=== PATIENT | male | born 1935 | race Caucasian/White ===

== ENCOUNTER 2018-03-29 20:04 | Observation (INO) | payer MEDICARE, OTHER ==
[~2018-03-29] VITALS: Ht 177.8 cm; Wt 130.6 kg
[~2018-03-29 20:04] MED LIST: ACET325 PO; ALBU90OI; ALLO100 PO; ALLO300 PO; ASCO1ER PO; ASPI325EC PO; ASPI81CH PO; ATEN25 PO; Aspirin EC81 MG PO; B 12; BICA50 PO; CEFD300 PO; CIPR500 PO; CITA20 PO; CYAN1000 PO; DOCU100 PO; DOXY100 PO; FISH1000 PO; FOLI1 PO; FOLI400 PO; FURO40 PO; GABA300 PO; HYDACE5 PO; HYDACE5325 PO; HYDMOR2 PO; Hair, Skin & N1 EACH PO; INTRINSI B12-F1 EACH PO; ISOMON20 PO; Isosorbide Dini30 MG PO; LACT10SY PO; LAVAP17G PO; LEVFLO500 PO; LEVSOD100 PO; LEVSOD75 PO; LISI20 PO; LISI5 PO; LORA.5 PO; LOSA50 PO; MELA3 PO; METF500 PO; METO50 PO; MIRT15 PO; OMEP20ER PO; OXYACE5T PO; OXYC5 PO; PANT40 PO; PIOG15 PO; POTA10T PO; POTASSIUM PO; POTCIT10 PO; PRAV20 PO; PROMETHAZINE/CODEINE; Pravachol40 MG PO; Prilosec Otc20 MG PO; RXHYDMOR2 PO; SIMV40 PO; Synthroid112 MCG PO; TAMS.4ER PO; TEMA30 PO; TERA2 PO; TERA5 PO; TERAZOSIN PO; TRAZ50 PO; UROCIT-K15 MEQ PO; Verotin-Gr Cap1 EACH PO; Vitamin C100 M1 PO
[2018-03-29] MEDS ORDERED: POTCHL10ER PO (20:32)
[2018-03-29] MEDS ORDERED: PRED5 PO (20:32)
[2018-03-29] MEDS ORDERED: ZYTIGA250 MG PO (20:32)
[2018-03-29] MEDS ORDERED: OXYC5 PO (20:33)
[2018-03-29 20:42] LABS: BASOPHILS ABSOLUTE AUTO 0.03 K/mm3 (0.00-0.23); BASOPHILS PERCENT AUTO 1 % (0-2); EOSINOPHILS ABSOLUTE AUTO 0.17 K/mm3 (0.00-0.68); EOSINOPHILS PERCENT AUTO 4 % (0-6); Hematocrit 30.6 % (37.0-53.0); Hemoglobin 10.3 g/dL (13.5-17.5); IMMATURE GRAN ABSOLUTE AUTO 0.05 K/mm3 (0.00-0.10); IMMATURE GRAN PERCENT AUTO 1 % (0-1); LYMPHOCYTES ABSOLUTE AUTO 1.52 K/mm3 (0.84-5.20); LYMPHOCYTES PERCENT AUTO 31 % (21-46); MONOCYTES ABSOLUTE AUTO 0.48 K/mm3 (0.16-1.47); MONOCYTES PERCENT AUTO 10 % (4-13); Mean Corpuscular HGB 32.5 pg (26.0-34.0); Mean Corpuscular HGB Conc 33.7 g/dL (31.5-36.5); Mean Corpuscular Volume 97 fL (80-100); Mean Platelet Volume 9.4 fL (9.1-12.4); NEUTROPHILS PERCENT AUTO 54 % (41-73); Platelet Count 184 K/mm3 (150-400); RDW Coefficient Variation 13.7 % (11.7-14.2); Red Blood Cell Count 3.17 M/mm3 (4.30-5.90); White Blood Cell Count 4.85 K/mm3 (4.00-11.30)
[2018-03-29 21:03] LABS: Albumin, Blood 3.6 g/dL (3.4-5.0); Albumin/Globulin Ratio 1.2 (0.8-1.8); Bilirubin, Total 0.2 mg/dL (0.1-1.0); Bun/Creatinine Ratio 13.1 (12.0-20.0); Calcium, Blood 8.2 mg/dL (8.5-10.1); Creatinine, Blood 1.45 mg/dL (0.60-1.20); Globulin, Blood 3.1 g/dL (2.2-4.0); Potassium, Blood 3.8 mmol/L (3.5-5.5); Total Protein, Blood 6.7 g/dL (6.4-8.2); Troponin I 0.08 ng/mL (0.000-0.040)
[2018-03-30 01:00] LABS: Source, Urine Clean Catch
[2018-03-30 01:01] LABS: Bilirubin, Urine Neg (Neg); Blood, Urine Neg (Neg); Glucose Qualitative, Urine Neg (Neg); Ketones, Urine Neg (Neg); Leukocyte Esterase, Urine Neg (Neg); Nitrite, Urine Neg (Neg); Protein, Urine Neg (Neg); Specific Gravity, Urine 1.005 (1.003-1.022); Urobilinogen, Urine NORM (Normal)
[2018-03-30 01:03] LABS: Appearance, Urine Clear (Clear); Color, Urine Yellow (P-Yellow)
[2018-03-30 08:43] LABS: Hemoglobin 10.4 g/dL (13.5-17.5); Mean Corpuscular HGB 32.6 pg (26.0-34.0); Mean Corpuscular HGB Conc 33.5 g/dL (31.5-36.5); Mean Corpuscular Volume 97 fL (80-100); Mean Platelet Volume 9.6 fL (9.1-12.4); Platelet Count 173 K/mm3 (150-400); RDW Coefficient Variation 13.7 % (11.7-14.2); RDW Standard Deviation 48.9 fL (35.1-46.3); Red Blood Cell Count 3.19 M/mm3 (4.30-5.90); White Blood Cell Count 4.85 K/mm3 (4.00-11.30)
[2018-03-30 09:01] LABS: Albumin, Blood 3.5 g/dL (3.4-5.0); Anion Gap 11 mmol/L (6-16); Blood Urea Nitrogen 18 mg/dL (8-24); Bun/Creatinine Ratio 12.9 (12.0-20.0); CO2, Blood 28 mmol/L (21-32); Calcium, Blood 8.2 mg/dL (8.5-10.1); Chloride, Blood 102 mmol/L (98-108); Creatinine, Blood 1.39 mg/dL (0.60-1.20); Glomerular Filtration Rate 52 (60-); Glucose, Blood 124 mg/dL (70-99); Magnesium, Blood 1.2 mg/dL (1.6-2.4); Phosphorus, Blood 3.7 mg/dL (2.5-4.9); Potassium, Blood 3.8 mmol/L (3.5-5.5); Sodium, Blood 141 mmol/L (136-145)
[2018-03-30 09:02] LABS: Troponin I 0.065 ng/mL (0.000-0.040)
[2018-03-30] MEDS ORDERED: AMLO10 PO (09:52)
[2018-03-30] MEDS ORDERED: CYAN500 PO (09:55)
[2018-03-30] MEDS ORDERED: DOCU100 PO (09:58)
[2018-03-30] MEDS ORDERED: CHOL10002 PO (10:00)
[2018-03-31 06:00] LABS: BASOPHILS ABSOLUTE AUTO 0.02 K/mm3 (0.00-0.23); BASOPHILS PERCENT AUTO 0 % (0-2); EOSINOPHILS ABSOLUTE AUTO 0.16 K/mm3 (0.00-0.68); EOSINOPHILS PERCENT AUTO 3 % (0-6); Hematocrit 30.1 % (37.0-53.0); Hemoglobin 10.3 g/dL (13.5-17.5); IMMATURE GRAN ABSOLUTE AUTO 0.04 K/mm3 (0.00-0.10); IMMATURE GRAN PERCENT AUTO 1 % (0-1); LYMPHOCYTES ABSOLUTE AUTO 1.22 K/mm3 (0.84-5.20); LYMPHOCYTES PERCENT AUTO 24 % (21-46); MONOCYTES ABSOLUTE AUTO 0.46 K/mm3 (0.16-1.47); MONOCYTES PERCENT AUTO 9 % (4-13); Mean Corpuscular HGB 33.2 pg (26.0-34.0); Mean Corpuscular HGB Conc 34.2 g/dL (31.5-36.5); Mean Corpuscular Volume 97 fL (80-100); Mean Platelet Volume 9.1 fL (9.1-12.4); NEUTROPHILS ABSOLUTE AUTO 3.14 K/mm3 (1.96-9.15); NEUTROPHILS PERCENT AUTO 62 % (41-73); Platelet Count 153 K/mm3 (150-400); RDW Coefficient Variation 13.5 % (11.7-14.2); RDW Standard Deviation 48.1 fL (35.1-46.3); White Blood Cell Count 5.04 K/mm3 (4.00-11.30)
[2018-03-31 06:15] LABS: Bun/Creatinine Ratio 15.4 (12.0-20.0); Calcium, Blood 7.8 mg/dL (8.5-10.1); Creatinine, Blood 1.49 mg/dL (0.60-1.20); Potassium, Blood 3.8 mmol/L (3.5-5.5)
[2018-03-31] MEDS ORDERED: BUME2 PO (11:20)
[2018-03-31] MEDS ORDERED: Metformin HCl500 MG PO (11:23)
[2018-03-31] MEDS ORDERED: Hytrin2 MG PO (11:28)
[2018-03-31] MEDS ORDERED: MIRALAX17 GM PO (11:32)
== END 2018-03-31 12:05 | disposition home or self-care (01) ==
LOC: ER 20:04 → MEDS 20:05 → ER 23:40 → MEDS 23:40 → ENPENDDIS 03-31 09:00 → MEDS 03-31 12:05
PROVIDERS: Emergency Medicine; Internal Medicine; Nurse Practitioner Acute Care
DX: R60.0 Localized edema (principal); K59.00 Constipation, unspecified; R14.0 Abdominal distension (gaseous); R79.89 Other specified abnormal findings of blood chemistry; E11.22 Type 2 diabetes mellitus with diabetic chronic kidney disease; I12.9 Hypertensive chronic kidney disease with stage 1 through stage 4 chronic kidney disease, or unspecified chronic kidney disease; N18.3 Chronic kidney disease, stage 3 (moderate); G89.29 Other chronic pain; E78.5 Hyperlipidemia, unspecified; C79.51 Secondary malignant neoplasm of bone; I25.10 Atherosclerotic heart disease of native coronary artery without angina pectoris; G47.33 Obstructive sleep apnea (adult) (pediatric); M79.89 Other specified soft tissue disorders; Z79.82 Long term (current) use of aspirin; Z79.899 Other long term (current) drug therapy; Z95.1 Presence of aortocoronary bypass graft; Z90.79 Acquired absence of other genital organ(s); Z92.3 Personal history of irradiation; Z85.46 Personal history of malignant neoplasm of prostate; Z99.89 Dependence on other enabling machines and devices; E78.00 Pure hypercholesterolemia, unspecified; Z88.0 Allergy status to penicillin; Z88.8 Allergy status to other drugs, medicaments and biological substances
CPT/HCPCS: 36415; 71046; 76700; 80048; 80053; 80069; 81003; 82947; 83735; 83880; 84484; 85025; 85027; 93005; 93010; 93306; 94762; 96372; 96374; 96375; 96376; 99285; G0378; J1644; J2405

== ENCOUNTER 2018-12-04 21:27 | Emergency (ER) | payer MEDICARE, OTHER ==
[~2018-12-04] VITALS: Ht 177.8 cm; Wt 128.4 kg
[~2018-12-04 21:27] MED LIST changes: +AMLO10 PO; +BUME2 PO; +CHOL10002 PO; +CYAN500 PO; -GABA300 PO; +GABA800 PO; +Hytrin2 MG PO; +MIRALAX17 GM PO; +Metformin HCl500 MG PO; +OXYC10TA19 PO; +POTCHL10ER PO; +PRED5 PO; +ZYTIGA250 MG PO
[2018-12-04] MEDS ORDERED: PRED5 PO (22:07)
[2018-12-04] MEDS ORDERED: DULO60 PO (22:07)
[2018-12-04] MEDS ORDERED: ZYTIGA250 MG PO (22:07)
[2018-12-04] MEDS ORDERED: ONDA4ODT MM (22:08)
[2018-12-04] MEDS ORDERED: PIOG15 PO (22:08)
[2018-12-04] MEDS ORDERED: LIDO700A20 TOP (22:58)
== END 2018-12-05 00:15 | disposition home or self-care (01) ==
LOC: ER 21:27
DX: M54.5 Low back pain (principal); G89.29 Other chronic pain; M48.56XD Collapsed vertebra, not elsewhere classified, lumbar region, subsequent encounter for fracture with routine healing; I25.10 Atherosclerotic heart disease of native coronary artery without angina pectoris; E11.22 Type 2 diabetes mellitus with diabetic chronic kidney disease; I12.9 Hypertensive chronic kidney disease with stage 1 through stage 4 chronic kidney disease, or unspecified chronic kidney disease; N18.9 Chronic kidney disease, unspecified; E78.00 Pure hypercholesterolemia, unspecified; Z85.46 Personal history of malignant neoplasm of prostate; Z88.0 Allergy status to penicillin; Z88.8 Allergy status to other drugs, medicaments and biological substances; Z79.82 Long term (current) use of aspirin; Z79.899 Other long term (current) drug therapy; Z87.442 Personal history of urinary calculi; Z96.653 Presence of artificial knee joint, bilateral; Z95.1 Presence of aortocoronary bypass graft; Z90.79 Acquired absence of other genital organ(s)
CPT/HCPCS: 72100; 96372; 96374; 99283-25; J1170; J1885

== ENCOUNTER 2018-12-09 13:06 | Emergency (ER) | payer MEDICARE, OTHER ==
[~2018-12-09] VITALS: Ht 177.8 cm; Wt 127.5 kg
[~2018-12-09 13:06] MED LIST changes: +DULO60 PO; +LIDO700A20 TOP; +ONDA4ODT MM
== END 2018-12-09 22:30 | disposition home or self-care (01) ==
LOC: ER 13:06
DX: K59.00 Constipation, unspecified (principal); G89.29 Other chronic pain; M54.5 Low back pain; I25.10 Atherosclerotic heart disease of native coronary artery without angina pectoris; I12.9 Hypertensive chronic kidney disease with stage 1 through stage 4 chronic kidney disease, or unspecified chronic kidney disease; E11.22 Type 2 diabetes mellitus with diabetic chronic kidney disease; N18.9 Chronic kidney disease, unspecified; E78.00 Pure hypercholesterolemia, unspecified; G47.33 Obstructive sleep apnea (adult) (pediatric); Z79.899 Other long term (current) drug therapy; Z88.0 Allergy status to penicillin; Z88.8 Allergy status to other drugs, medicaments and biological substances; Z79.82 Long term (current) use of aspirin
CPT/HCPCS: 74018; 96372; 99283-25; J1170

== ENCOUNTER 2018-12-14 11:23 | Emergency (ER) | payer MEDICARE, OTHER ==
[~2018-12-14] VITALS: Ht 177.8 cm; Wt 127.0 kg
[2018-12-14] MEDS ORDERED: PRED5 PO (22:11)
[2018-12-14] MEDS ORDERED: CHOL10002 PO (22:11)
[2018-12-14] MEDS ORDERED: FENTANYL1 EAC1 TD (22:14)
[2018-12-14] MEDS ORDERED: HYDMOR2 PO (22:57)
[2018-12-14] MEDS ORDERED: OXYCODONE HCL E20 MG PO (22:57)
== END 2018-12-14 13:45 | disposition left against medical advice (07) ==
LOC: ER 11:23
DX: Z53.21 Procedure and treatment not carried out due to patient leaving prior to being seen by health care provider (principal); Z79.899 Other long term (current) drug therapy; Z79.82 Long term (current) use of aspirin
CPT/HCPCS: 99282

== ENCOUNTER 2018-12-14 17:04 | Emergency (ER) | payer MEDICARE, OTHER ==
[~2018-12-14] VITALS: Ht 177.8 cm; Wt 127.0 kg
[2018-12-14] MEDS ORDERED: PRED5 PO (22:11)
[2018-12-14] MEDS ORDERED: CHOL10002 PO (22:11)
[2018-12-14] MEDS ORDERED: FENTANYL1 EAC1 TD (22:14)
[2018-12-14] MEDS ORDERED: HYDMOR2 PO (22:57)
[2018-12-14] MEDS ORDERED: OXYCODONE HCL E20 MG PO (22:57)
== END 2018-12-14 23:24 | disposition home or self-care (01) ==
LOC: ER 17:04
DX: G89.29 Other chronic pain (principal); M54.5 Low back pain; M48.56XA Collapsed vertebra, not elsewhere classified, lumbar region, initial encounter for fracture; E11.9 Type 2 diabetes mellitus without complications; Z79.899 Other long term (current) drug therapy; Z79.82 Long term (current) use of aspirin; Z88.0 Allergy status to penicillin; Z88.8 Allergy status to other drugs, medicaments and biological substances
CPT/HCPCS: 36415; 72100; 96372; 96374; 96375; 99283-25; J1170; J2405

== ENCOUNTER 2018-12-25 14:32 | Emergency (ER) | payer MEDICARE, OTHER ==
[~2018-12-25] VITALS: Ht 177.8 cm; Wt 127.5 kg
[~2018-12-25 14:32] MED LIST changes: +FENTANYL1 EAC1 TD; +OXYCODONE HCL E20 MG PO
[2018-12-25 15:21] LABS: BASOPHILS ABSOLUTE AUTO 0.03 K/mm3 (0.00-0.23); BASOPHILS PERCENT AUTO 0 % (0-2); EOSINOPHILS ABSOLUTE AUTO 0.04 K/mm3 (0.00-0.68); EOSINOPHILS PERCENT AUTO 0 % (0-6); Hematocrit 34.8 % (37.0-53.0); Hemoglobin 11.5 g/dL (13.5-17.5); IMMATURE GRAN ABSOLUTE AUTO 0.17 K/mm3 (0.00-0.10); IMMATURE GRAN PERCENT AUTO 2 % (0-1); LYMPHOCYTES ABSOLUTE AUTO 0.76 K/mm3 (0.84-5.20); LYMPHOCYTES PERCENT AUTO 9 % (21-46); MONOCYTES ABSOLUTE AUTO 0.64 K/mm3 (0.16-1.47); MONOCYTES PERCENT AUTO 7 % (4-13); Mean Corpuscular HGB 33.4 pg (26.0-34.0); Mean Corpuscular Volume 101 fL (80-100); Mean Platelet Volume 8.9 fL (9.1-12.4); NEUTROPHILS PERCENT AUTO 82 % (41-73); Platelet Count 253 K/mm3 (150-400); RDW Coefficient Variation 13.1 % (11.7-14.2); RDW Standard Deviation 48.3 fL (35.1-46.3); Red Blood Cell Count 3.44 M/mm3 (4.30-5.90); White Blood Cell Count 8.94 K/mm3 (4.00-11.30)
[2018-12-25 16:08] LABS: Albumin, Blood 3.3 g/dL (3.4-5.0); Albumin/Globulin Ratio 0.8 (0.8-1.8); Bilirubin, Total 0.5 mg/dL (0.1-1.0); Calcium, Blood 9.1 mg/dL (8.5-10.1); Creatinine, Blood 1.5 mg/dL (0.60-1.20); Total Protein, Blood 7.3 g/dL (6.4-8.2)
[2018-12-26] MEDS ORDERED: HYDMOR2 PO (11:03)
[2018-12-26] MEDS ORDERED: OXYC10ER PO (11:04)
[2018-12-26] MEDS ORDERED: FENT50TP TOP (14:07)
== END 2018-12-25 18:37 | disposition home or self-care (01) ==
LOC: ER 14:32
PROVIDERS: Emergency Medicine
DX: M79.669 Pain in unspecified lower leg (principal); I25.10 Atherosclerotic heart disease of native coronary artery without angina pectoris; I50.9 Heart failure, unspecified; G47.33 Obstructive sleep apnea (adult) (pediatric); E11.22 Type 2 diabetes mellitus with diabetic chronic kidney disease; N18.9 Chronic kidney disease, unspecified; Z79.899 Other long term (current) drug therapy; Z79.82 Long term (current) use of aspirin
CPT/HCPCS: 36415; 80053; 83880; 85025; 93005; 93010; 93925; 99284-25

== ENCOUNTER 2018-12-26 10:44 | Emergency (ER) | payer MEDICARE, OTHER ==
[~2018-12-26] VITALS: Ht 177.8 cm; Wt 127.5 kg
[2018-12-26] MEDS ORDERED: HYDMOR2 PO (11:03)
[2018-12-26] MEDS ORDERED: OXYC10ER PO (11:04)
[2018-12-26] MEDS ORDERED: FENT50TP TOP (14:07)
--- NOTE | 2018-12-26 15:23 | NUR ---
Initial Pal Care visit: Met pt, his and grandson in ER#[address] after update obtained from Dr Montano. Pt was in the ER yesterday for tammy LE edema. He returns with severe back pain that has been an ongoing, severe issue unrelieved with current analgesics. Pt has been on Duragesic patch 25mcg, Oxycodone ER 20mg PO q12h and also has dilaudid 2mg PO q4hrs prn breakthru pain which has all been used. Due to pt's severe pain, he is unable to assist family with mobility and unable to navigate stairs at home. Grandson reports they were told by PCP office to come to ER for "placement in a facility" until his back procedure could be done, which will hopefully provide some relief. Pt sees Dr Man for his prostate ca and treatment that has included a large number of radiation tx. Pt sees Dr Bustos as his PCP but pt and family state each Dr refers them to the other Dr for pain management. I recommended they request a referral to a pain specialist. 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 We spent 40 minutes discussing options for home management and care. Their bathroom remodel is starting tomorrow. I recommended staying with family or a handicapped accesible motel while they were without toilet and BR. I recommended some equipment in the home, BSC, WC, shower chair. Grandson is clearly overwhelmed with Norm's care needs. WE discussed criteria required for SNF and pt does not meet those criteria without an acute care stay and dx that would be treated at hospital and SNF. Grandson asked about other options and I offered options that would be private pay ie, [facility], [facility], hired caregiver. Pt has medicare with a moda supplement but he does not have medicaid that may cover some care costs that health insurance does not. and grandson had questions re: Palliative Care, hospice and HH services and we discussed all of those including how they work, who would order, quilifying criteria. I do not know what pt's prognosis is in regard to his cancer or any other chronic disease process and I did not recommend any specific option but answered questions asked. I reported to Dr and RN on my visit. Recommended increasing the pt's home duragesic patch dose to 50 mcg applied q72 hrs by removing current patch and applying new 50mcg patch here in ER. Discussed with pt and family s/s to assess for, increased somnolence, decreased respiratory rate and to hold the breakthru pain meds and possibly the ER meds unless pt was alert, oriented, reporting pain >6/10 to avoid oversedation or compromise of respiratory drive. Grandson states they have an oximeter and pt uses CPAP with napping and night time. He verbalizes understanding of instructions given. Pt states HH had been ordered for him and I recommended he keep those appointments as a HH PT/OT and RN could give better recommendations after assessing their home for modifications to improve safety and mobility there. Time spent listening to their frustrations and fears. They expressed appreciation for the information and time spent with them. I asked them to contact both PCP and oncologist tomorrow and report on ER visit and needs. Pt is scheduled a week from tomorrow for the out patient back procedure and are hopeful he will get some relief after that.
== END 2018-12-26 15:16 | disposition home or self-care (01) ==
LOC: ER 10:44
DX: G89.29 Other chronic pain (principal); M54.5 Low back pain; Z88.0 Allergy status to penicillin; Z88.8 Allergy status to other drugs, medicaments and biological substances; Z79.899 Other long term (current) drug therapy; Z79.82 Long term (current) use of aspirin; Z79.52 Long term (current) use of systemic steroids; I50.9 Heart failure, unspecified; N18.9 Chronic kidney disease, unspecified
CPT/HCPCS: 36415; 96374; 96376; 99283-25; J1170

== ENCOUNTER 2018-12-31 10:51 | Emergency (ER) | payer MEDICARE, OTHER ==
[~2018-12-31] VITALS: Ht 177.8 cm; Wt 127.0 kg
[~2018-12-31 10:51] MED LIST changes: +FENT50TP TOP; +OXYC10ER PO
[2018-12-31 12:00] LABS: BASOPHILS ABSOLUTE AUTO 0.02 K/mm3 (0.00-0.23); BASOPHILS PERCENT AUTO 0 % (0-2); EOSINOPHILS ABSOLUTE AUTO 0.05 K/mm3 (0.00-0.68); EOSINOPHILS PERCENT AUTO 1 % (0-6); Hematocrit 33.3 % (37.0-53.0); Hemoglobin 10.5 g/dL (13.5-17.5); IMMATURE GRAN ABSOLUTE AUTO 0.16 K/mm3 (0.00-0.10); IMMATURE GRAN PERCENT AUTO 3 % (0-1); LYMPHOCYTES ABSOLUTE AUTO 0.64 K/mm3 (0.84-5.20); LYMPHOCYTES PERCENT AUTO 10 % (21-46); MONOCYTES ABSOLUTE AUTO 0.45 K/mm3 (0.16-1.47); MONOCYTES PERCENT AUTO 7 % (4-13); Mean Corpuscular HGB 32.8 pg (26.0-34.0); Mean Corpuscular HGB Conc 31.5 g/dL (31.5-36.5); Mean Platelet Volume 8.7 fL (9.1-12.4); NEUTROPHILS ABSOLUTE AUTO 4.89 K/mm3 (1.96-9.15); NEUTROPHILS PERCENT AUTO 79 % (41-73); Platelet Count 230 K/mm3 (150-400); RDW Standard Deviation 49.5 fL (35.1-46.3); White Blood Cell Count 6.21 K/mm3 (4.00-11.30)
[2018-12-31 12:08] LABS: Mean Corpuscular Volume 104 fL (80-100)
[2018-12-31 12:19] LABS: Bun/Creatinine Ratio 19.4 (12.0-20.0); Calcium, Blood 8.8 mg/dL (8.5-10.1); Creatinine, Blood 1.8 mg/dL (0.60-1.20)
[2018-12-31] MEDS ORDERED: GABA400 PO (12:56)
[2018-12-31] MEDS ORDERED: Oxycontin20 MG PO (12:56)
[2018-12-31] MEDS ORDERED: Narcan 0.40.4 MG/ML IM (12:56)
--- NOTE | 2018-12-31 17:57 | NUR ---
Met withpatient and son. pt denies headaches, he has mild intermeitant ringing in his ears for years. 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 neck tighness and moderate venitlation and mild dyspnea. pt main complaint is low back pain sapsm pain to legs and constipation. Review of patient medication list. pt had neuronin prescribed at 800mg TID. Son states they are only taking 800 at HS. States insurance alled and refused dosing. Reviewed patient medication list with phamacist Tristen Fajardo and we reviewed his creatine clearance from past admission and labs for trending. REview of renal calculations and review with ER physician. and minimal dosing ordered TID for better nerve pain coverage. Patient is having his bathrrom redone for ease of access so they have been stayin in hotel. Theya re able to retun today. pt has intake with [facility] for home tash. Review of pain meds with pt, son and physician. advised son to contact Dr. Morfin for assitance of medication dosing will updat patient physicians. advised to request PT for stiffness and increas mobility tolerance. pt kps score is 40%. pt may be hospice appropriate. will update physician to help with appropriate tiem for transition to hospice and pain managment.
== END 2018-12-31 13:18 | disposition home or self-care (01) ==
LOC: ER 10:51
PROVIDERS: Emergency Medicine
DX: M54.5 Low back pain (principal); I50.9 Heart failure, unspecified; E11.9 Type 2 diabetes mellitus without complications; N18.9 Chronic kidney disease, unspecified; Z88.0 Allergy status to penicillin; Z79.899 Other long term (current) drug therapy
CPT/HCPCS: 72100; 80048; 85025; J1170

== ENCOUNTER 2019-01-04 12:20 | Inpatient (IN) | payer MEDICARE, OTHER ==
[~2019-01-04] VITALS: Ht 177.8 cm; Wt 127.0 kg
[~2019-01-04 12:20] MED LIST changes: +GABA400 PO; +Narcan 0.40.4 MG/ML IM; +Oxycontin20 MG PO
[2019-01-04 12:59] LABS: Hemoglobin 10.8 g/dL (13.5-17.5); Mean Corpuscular HGB 32.7 pg (26.0-34.0); Mean Corpuscular HGB Conc 31.8 g/dL (31.5-36.5); Mean Corpuscular Volume 103 fL (80-100); RDW Coefficient Variation 13.2 % (11.7-14.2); RDW Standard Deviation 49.2 fL (35.1-46.3); White Blood Cell Count 8.69 K/mm3 (4.00-11.30)
[2019-01-04 13:05] LABS: Mean Platelet Volume 9.4 fL (9.1-12.4); Platelet Count 211 K/mm3 (150-400)
[2019-01-04 13:23] LABS: BAND PERCENT MAN 7 % (0-8); BASOPHILS PERCENT MAN 0 % (0-2); EOSINOPHILS ABSOLUTE MAN 0.08 K/mm3 (0.00-0.68); EOSINOPHILS PERCENT MAN 1 % (0-6); LYMPHOCYTES ABSOLUTE MAN 0.34 K/mm3 (0.84-5.20); LYMPHOCYTES PERCENT MAN 4 % (21-46); MONOCYTES PERCENT MAN 7 % (4-13); NEUTROPHILS ABSOLUTE MAN 7.64 K/mm3 (1.96-9.15); SEG NEUTROPHILS PERCENT MAN 81 % (41-73); TOTAL CELLS COUNTED 100
[2019-01-04 13:26] LABS: Albumin, Blood 2.8 g/dL (3.4-5.0); Albumin/Globulin Ratio 0.8 (0.8-1.8); Bilirubin, Total 0.4 mg/dL (0.1-1.0); Bun/Creatinine Ratio 14.9 (12.0-20.0); Calcium, Blood 8.2 mg/dL (8.5-10.1); Creatinine, Blood 3.62 mg/dL (0.60-1.20); Globulin, Blood 3.5 g/dL (2.2-4.0); Potassium, Blood 4.1 mmol/L (3.5-5.5); Total Protein, Blood 6.3 g/dL (6.4-8.2)
[2019-01-04 13:33] LABS: Troponin I 0.509 ng/mL (0.000-0.040)
--- NOTE | 2019-01-04 19:28 | NUR ---
ARRIVED ON MEDICAL FLOOR AT 1850. TRANSFERRED PT TO BED WITH AO3 SLIDE TRANSFER. BRIEF PLACED FOR HX OF INCONTINENCE. DAUGHTER WEN AT BEDSIDE. PT ENDORSES PAIN WITH MOVEMENT, POSITIONING UTILIZED. SERIAL TROPONIN DRAWN. HANDED OVER TO NIGHT NURSE
[2019-01-04] MEDS ORDERED: LOSA25 PO (19:47)
[2019-01-04 21:14] LABS: PCO2 Arterial 40.9 mmHg (35-45); PO2 Arterial 53.9 mmHg (80-100); pH Blood Arterial 7.36 (7.35-7.45)
[2019-01-04 21:34] LABS: Thyroid Stimulating Hormone 3.97 uIU/mL (0.360-4.800)
[2019-01-04 23:36] LABS: Source, Urine Catheter
[2019-01-04 23:38] LABS: Blood, Urine 3+ (Neg); Glucose Qualitative, Urine Neg (Neg); Ketones, Urine 1+ (Neg); Leukocyte Esterase, Urine 1+ (Neg); Nitrite, Urine Neg (Neg); Protein, Urine 2+ (Neg); Urobilinogen, Urine 1+ (Normal)
[2019-01-04 23:48] LABS: Appearance, Urine Clear (Clear); Bilirubin, Urine 2+ (Neg); Color, Urine Amber (P-Yellow)
[2019-01-04 23:49] LABS: Amorphous Light (0-Heavy); Bacteria Mod /hpf; Red Blood Cells, Urine 0-2 /hpf (0-2); Squamous Epithelial Cells Not Seen /hpf (Few); White Blood Cells, Urine 0-2 /hpf (0-5)
[2019-01-04 23:50] LABS: Mucus Light (0-Heavy)
[2019-01-04 23:52] LABS: U Amphetamine Screen Not Detected; U Barbituate Screen Not Detected; U Benzodiazapine Screen DETECTED; U Buprenorphine Screen Not Detected; U Cannabinoids Screen Not Detected; U Cocaine Screen Not Detected; U Methadone Screen Not Detected; U Methamphetamine Screen Not Detected; U Opiates Screen DETECTED; U Oxycodone Screen DETECTED; U Phencyclidine Screen Not Detected; U Propoxyphene Screen Not Detected
[2019-01-05 01:03] LABS: BASOPHILS ABSOLUTE AUTO 0.02 K/mm3 (0.00-0.23); BASOPHILS PERCENT AUTO 0 % (0-2); EOSINOPHILS ABSOLUTE AUTO 0.06 K/mm3 (0.00-0.68); EOSINOPHILS PERCENT AUTO 1 % (0-6); Hematocrit 33.6 % (37.0-53.0); Hemoglobin 10.7 g/dL (13.5-17.5); IMMATURE GRAN ABSOLUTE AUTO 0.06 K/mm3 (0.00-0.10); IMMATURE GRAN PERCENT AUTO 1 % (0-1); LYMPHOCYTES ABSOLUTE AUTO 0.25 K/mm3 (0.84-5.20); LYMPHOCYTES PERCENT AUTO 3 % (21-46); MONOCYTES ABSOLUTE AUTO 0.45 K/mm3 (0.16-1.47); MONOCYTES PERCENT AUTO 5 % (4-13); Mean Corpuscular HGB 32.3 pg (26.0-34.0); Mean Corpuscular HGB Conc 31.8 g/dL (31.5-36.5); Mean Corpuscular Volume 102 fL (80-100); Mean Platelet Volume 9.1 fL (9.1-12.4); NEUTROPHILS ABSOLUTE AUTO 7.67 K/mm3 (1.96-9.15); NEUTROPHILS PERCENT AUTO 90 % (41-73); Platelet Count 191 K/mm3 (150-400); RDW Coefficient Variation 13.2 % (11.7-14.2); RDW Standard Deviation 48.9 fL (35.1-46.3); Red Blood Cell Count 3.31 M/mm3 (4.30-5.90); White Blood Cell Count 8.51 K/mm3 (4.00-11.30)
[2019-01-05 01:55] LABS: Bun/Creatinine Ratio 17.3 (12.0-20.0); Calcium, Blood 8.2 mg/dL (8.5-10.1); Creatinine, Blood 3.65 mg/dL (0.60-1.20)
--- NOTE | 2019-01-05 02:45 | NUR ---
2024 pt troponin elevated to 0.965, hospitalist supervisor [employer] notified. will be awaiting orders for this pt. Pt continues to be lethargic and has jerking movements. Responds to voice. 5 troponin elevated to 1.53, hospitalist supervisor [employer] notified, no new orders received as of yet. pT CONTINUES TO BE JERKY WITH MOVEMENT AND LETHARGIC RESPONDING ONLY TO VERBAL STIMULI. TELE SHOWS SINUS TACH WITH PAC AND BBB AT 114. WILL CONTINUE TO MONITOR.
--- NOTE | 2019-01-05 05:50 | NUR ---
SHIFT SUMMARY NO NEW CHANGES FROM PREVIOUS NOTE. PT REMAINS LETHARGIC AND ALSO CONTINUES TOO HAVE JERKING MOVEMENTS. PT TURNED TO LEFT SIDE AND TOLERATING WELL. PT STRAIT CATHED FOR UA, CATHED ABOUT 200 ML'S RAMIRO COLORED URINE. WILL CONTINUE TO MONITOR.
--- NOTE | 2019-01-05 10:09 | NUR ---
Echocardiogram completed.
[2019-01-05 10:35] LABS: PCO2 Arterial 47.6 mmHg (35-45); PO2 Arterial 169 mmHg (80-100); pH Blood Arterial 6.92 (7.35-7.45)
--- NOTE | 2019-01-05 11:31 | NUR ---
1047 PT TO ICU-16 VIA BED, BICARB GTT STARTED AND INC TO 500ML TIMES ONE LITER PER DR COREAS. LR CURRENTLY TKO. PT IS NOT FOLLOWING ANY COMMANDS AND IS TWITCHING RANDOMLY TIMES 4 EXT. W/O PURPOSE AND NOT FOLLOWING ANY COMMMANDS. ESCALANTE PLACE AND VERY CONSENTRATED URINE RETURNED AND SPECIMEN SENT. PT WAS PLACED ON BIPAP 16/12 AT 100% FIO2 AND RR 40-42. LUNG SOUNDS REVEAL DECREASED B.S. TO WITH POST BASILAR CRACKLES. PT IS MOTTLED EVERYWHERE. BP IS NOTED VIA NIPB BUT WITH TWITCHING PT IS DIFFICULT TO OBTAIN ACCURATE READINGS. 1150 MANUAL BP AT 118/80. HR 84, SATS REMAIN UNRELIABLE. MOTTLING IMPROVED, HR DOWN FROM 90 TO 80 RANGE. RR 40 SAME SETTINGS.
--- NOTE | 2019-01-05 11:42 | NUR ---
FIELD START TO THE L WRIST PATENT. NOT DOCUMENTED IN IV ASSESSMENT.
--- NOTE | 2019-01-05 11:56 | NUR ---
SEE CHORUS MASTER NOTE. CHORUS MASTER INITIATED. DR. MERAZ AT BEDSIDE. UNABLE TO GET AN ACCURATE BP WITH CAPSULE DURING CHORUS MASTER. THIS RN PERFORMED A MANUAL BP, NOTED IT TO BE AT 70/40. NON REBREATER PLACED. ABG PLACED. NEW FLUIDS ADMINISTERED. NEW IV PLACED. EKG PERFORMED. PATIENT TRANSFERED TO ICU. THIS RN GAVE REPORT TO RAZ TREVINO. AT BEDSIDE. THIS RN NOTIFIED DR. BELLE OF PATIENT BEING IN HOSPITAL AND CONSULT.
[2019-01-05 12:00] LABS: Hematocrit 35.7 % (37.0-53.0); Hemoglobin 10.8 g/dL (13.5-17.5); Mean Corpuscular HGB 32.4 pg (26.0-34.0); Mean Corpuscular HGB Conc 30.3 g/dL (31.5-36.5); Mean Platelet Volume 9.8 fL (9.1-12.4); NRBC ABSOLUTE 0.05 K/mm3 (0.00-0.02); NRBC Auto 0.6 /100 WBC (0.0-0.2); Platelet Count 214 K/mm3 (150-400); RDW Coefficient Variation 13.3 % (11.7-14.2); RDW Standard Deviation 52.7 fL (35.1-46.3); Red Blood Cell Count 3.33 M/mm3 (4.30-5.90); White Blood Cell Count 8.03 K/mm3 (4.00-11.30)
[2019-01-05 12:09] LABS: Creatine Kinase MB 27.1 ng/mL (0.0-3.6)
[2019-01-05 12:18] LABS: Mean Corpuscular Volume 107 fL (80-100)
[2019-01-05 12:27] LABS: BAND PERCENT MAN 12 % (0-8); BASOPHILS PERCENT MAN 0 % (0-2); EOSINOPHILS PERCENT MAN 0 % (0-6); LYMPHOCYTES ABSOLUTE MAN 0.88 K/mm3 (0.84-5.20); LYMPHOCYTES PERCENT MAN 11 % (21-46); METAMYELOCYTE ABSOLUTE MAN 0.08 K/mm3 (0.00-0.00); METAMYELOCYTE PERCENT MAN 1 % (0-0); MONOCYTES PERCENT MAN 5 % (4-13); NEUTROPHILS ABSOLUTE MAN 6.66 K/mm3 (1.96-9.15); SEG NEUTROPHILS PERCENT MAN 71 % (41-73); TOTAL CELLS COUNTED 100
[2019-01-05 12:37] LABS: Creatine Kinase MB Index 0.7 (0.0-4.0); Troponin I 2.93 ng/mL (0.000-0.040)
[2019-01-05 14:06] LABS: Albumin, Blood 2.2 g/dL (3.4-5.0); Anion Gap 26 mmol/L (6-16); Blood Urea Nitrogen 73 mg/dL (8-24); Bun/Creatinine Ratio 15.7 (12.0-20.0); CO2, Blood 14 mmol/L (21-32); Calcium, Blood 7.7 mg/dL (8.5-10.1); Chloride, Blood 96 mmol/L (98-108); Creatinine, Blood 4.64 mg/dL (0.60-1.20); Glomerular Filtration Rate 13 (60-); Glucose, Blood 157 mg/dL (70-99); Potassium, Blood 5.5 mmol/L (3.5-5.5); Sodium, Blood 136 mmol/L (136-145)
[2019-01-05 14:25] LABS: Phosphorus, Blood 10.5 mg/dL (2.5-4.9)
[2019-01-05 14:42] LABS: Albumin, Blood 2.3 g/dL (3.4-5.0); Albumin/Globulin Ratio 0.6 (0.8-1.8); Bilirubin, Total 0.8 mg/dL (0.1-1.0); Bun/Creatinine Ratio 16.5 (12.0-20.0); Calcium, Blood 7.7 mg/dL (8.5-10.1); Creatinine, Blood 4.49 mg/dL (0.60-1.20); Globulin, Blood 3.6 g/dL (2.2-4.0); Magnesium, Blood 2.8 mg/dL (1.6-2.4); Potassium, Blood 5.4 mmol/L (3.5-5.5); Total Protein, Blood 5.9 g/dL (6.4-8.2)
[2019-01-05 15:07] LABS: PCO2 Arterial 27.1 mmHg (35-45); PO2 Arterial 128 mmHg (80-100); pH Blood Arterial 7.19 (7.35-7.45)
[2019-01-05 15:26] LABS: Hematocrit 34.3 % (37.0-53.0); Hemoglobin 10.7 g/dL (13.5-17.5); Mean Corpuscular HGB 33.5 pg (26.0-34.0); Mean Corpuscular HGB Conc 31.2 g/dL (31.5-36.5); Mean Corpuscular Volume 108 fL (80-100); Mean Platelet Volume 9.7 fL (9.1-12.4); NRBC ABSOLUTE 0.07 K/mm3 (0.00-0.02); NRBC Auto 1.1 /100 WBC (0.0-0.2); Platelet Count 193 K/mm3 (150-400); RDW Coefficient Variation 13.3 % (11.7-14.2); RDW Standard Deviation 53.7 fL (35.1-46.3); Red Blood Cell Count 3.19 M/mm3 (4.30-5.90); White Blood Cell Count 6.56 K/mm3 (4.00-11.30)
--- NOTE | 2019-01-05 15:35 | NUR ---
PT UPDATE: OGT PLACED BY THIS RN. CONFIRMED WITH AUSCULATION/ASPIRATION. PLACED TO LIS PER DR COREAS'S VERBAL ORDERS. CXR DONE TO CONFIRM ETT, PICC LINE, AND OGT.
[2019-01-05 15:42] LABS: Phosphorus, Blood 10.7 mg/dL (2.5-4.9)
--- NOTE | 2019-01-05 15:45 | NUR ---
1340 RETURNING FROM LUNCH PT NOT TO HAVE LOW BP AT 50/D. DR COREAS NOTIFIED AND NEW ORDERS NOTED. LEVOPHED GTT STARTED VIA GOOD LAC IV SITED. PT IS TWITCHING LESS AND NOT RESPONSIVE.
--- NOTE | 2019-01-05 15:47 | NUR ---
1355 DECISION WAS MADE TO INTUBATE PT. INTUBATED AT 1405 ON LOW DOSE PROPOFOL AND LEVOPHED GTT STARTED AT 30, DOWN TO 20, THEN 15MCG AND NEEDED TO GO UP TO 20 MCG AGAIN. PT VENT SETTINGS NOTE. OG PLACE AND BROWN STOMACH CONTENTS OF ABOUT 500ML AT FIRST, WILL FOLLOW. LUNGS REMAIN QUITE DECREASED WITH MINIMAL SECREATIONS.
[2019-01-05 15:56] LABS: International Normalized Ratio 1.36
[2019-01-05 16:03] LABS: BAND PERCENT MAN 41 % (0-8); BASOPHILS PERCENT MAN 0 % (0-2); EOSINOPHILS PERCENT MAN 0 % (0-6); LYMPHOCYTES ABSOLUTE MAN 0.26 K/mm3 (0.84-5.20); LYMPHOCYTES PERCENT MAN 4 % (21-46); METAMYELOCYTE ABSOLUTE MAN 0.45 K/mm3 (0.00-0.00); METAMYELOCYTE PERCENT MAN 7 % (0-0); MONOCYTES ABSOLUTE MAN 0.52 K/mm3 (0.16-1.47); MONOCYTES PERCENT MAN 8 % (4-13); NEUTROPHILS ABSOLUTE MAN 5.31 K/mm3 (1.96-9.15); SEG NEUTROPHILS PERCENT MAN 40 % (41-73); TOTAL CELLS COUNTED 100
--- NOTE | 2019-01-05 16:26 | NUR ---
PALLIATIVE CARE CLINICAL VISIT: Pt's remaining family members and close friends have arrived. Assisted with coordinating family visits between RT, RN, lab and Radiology interventions. Their questions were answered. He has og to suction, childs cath with scant dark bong urine only. He is ventilated, with no meds currently for sedation or pain. Pt appears comfortable with no nonverbal indicators of pain, anxiety, agitation or distress, unlike any previous visit. He is unresponsive to verbal or tactile stimuli. He had been given narcan earlier in the day due to somnolence, twitching and low BP. This improved twitching minimally per RN. Pt's son and friend present to hear update from pt's RN. Pt to CT via bed with RN, RT and other staff. Continued to offer family support and beverages, snacks while waiting. They are grapling with decisions regarding cont aggressive care, dialysis and code status. Currently all agree pt would not want compressions due to his brittle bones r/t bone mets & due to his pre-existing severe bone pain for a very long time. Super[employer] and I both heard from family members that pt has been "talking with his deceasaed and parents for weaks now" and that his mentation has changed over the past month or more. He was scheduled for a procedure to address his severe back pain and spinal compression on Thursday. He and his grandson went up to [place] the night before due to the severe winter weather warnings and presented to the clinic yesterday am. No one was at the clinic when he arrived for the day surgery procedure and no one cancelled by phone. Grandson attempted to transport the pt back [place] by private car [place]. Pt was able to get some food and medications t/o the day but very little fluids. He was in horrific pain when they arrived home 8-12 hours later to his home without power for his CPAP. Family monitored for a time after EMS helped them get pt in the home but called EMS again when his BP and LOC dropped. Pt admitted for decreased renal function, low BP, severe pain and his condition rapidly deteriorated thru the night and ongoing thru today. Dr Banks has met with family and answered questions as additional family arrived twice. Family is well aware of guarded prognosis and critical issues the Drs are working up and treating at this time.
[2019-01-05 17:36] LABS: Hemoglobin 10.2 g/dL (13.5-17.5); Mean Corpuscular HGB 32.7 pg (26.0-34.0); Mean Corpuscular HGB Conc 30.9 g/dL (31.5-36.5); Mean Corpuscular Volume 106 fL (80-100); Mean Platelet Volume 9.7 fL (9.1-12.4); NRBC ABSOLUTE 0.08 K/mm3 (0.00-0.02); NRBC Auto 1.6 /100 WBC (0.0-0.2); Platelet Count 172 K/mm3 (150-400); RDW Coefficient Variation 13.4 % (11.7-14.2); RDW Standard Deviation 51.1 fL (35.1-46.3); Red Blood Cell Count 3.12 M/mm3 (4.30-5.90)
[2019-01-05 17:51] LABS: Bun/Creatinine Ratio 17.2 (12.0-20.0); Calcium, Blood 7.2 mg/dL (8.5-10.1); Creatinine, Blood 4.36 mg/dL (0.60-1.20); Magnesium, Blood 2.5 mg/dL (1.6-2.4); Potassium, Blood 5.9 mmol/L (3.5-5.5)
[2019-01-05 18:10] LABS: BAND PERCENT MAN 45 % (0-8); BASOPHILS PERCENT MAN 0 % (0-2); EOSINOPHILS PERCENT MAN 0 % (0-6); LYMPHOCYTES ABSOLUTE MAN 0.35 K/mm3 (0.84-5.20); LYMPHOCYTES PERCENT MAN 7 % (21-46); METAMYELOCYTE PERCENT MAN 4 % (0-0); MONOCYTES PERCENT MAN 2 % (4-13); NEUTROPHILS ABSOLUTE MAN 4.35 K/mm3 (1.96-9.15); SEG NEUTROPHILS PERCENT MAN 42 % (41-73); TOTAL CELLS COUNTED 100
[2019-01-05 18:35] LABS: Phosphorus, Blood 10.7 mg/dL (2.5-4.9)
[2019-01-05 19:17] LABS: Creatine Kinase MB 88.2 ng/mL (0.0-3.6)
[2019-01-05 19:47] LABS: Creatine Kinase MB Index 1.1 (0.0-4.0); Troponin I 3.35 ng/mL (0.000-0.040)
--- NOTE | 2019-01-05 19:48 | NUR ---
BEDSIDE REPORT FROM URIEL CRANDALL. LEVOPHED gtt CHANGED OUT TO DOUBLE STRENGTH CONTINUING AT 30 mcg/min; LR AT 150mL/hr; VASOPRESSON AT 0.04 u/min. AT END OF REPORT, CALL FROM DR. BELLE TAKEN BY URIEL CRANDALL WITH NEW ORDERS GIVEN. THEN DR. BELLE TALKED WITH PT'S DAUGHTER WEN OVER THE PHONE AND IS NOW CURRENTLY TALKING WITH DR. COREAS. WILL ACKNOWLEDGE NEW ORDERS AND ADMINISTER ACCORDINGLY. CV TROPONIN GIVEN AND SHOWN TO DR. COREAS OF TROPONIN 3.35.
--- NOTE | 2019-01-05 20:21 | NUR ---
DR. BELLE NOTIFIED REGARDING DR. COREAS'S CONVERSATION WITH FAMILY AND FAMILY, "NOT TO INITIATE DIALYSIS". DR. COREAS CONTINUING TO TALK WITH FAMILY. DR. BELLE NOTIFIED. NO NEW ORDERS GIVEN AT THIS TIME.
--- NOTE | 2019-01-05 20:30 | NUR ---
DISCUSSED WITH FAMILY PT CONDITION AND THEY SEEM AWARE. PROPOFOL OFF. LEVOPHED GTT AT 30MCG, VASOPRESSIN GTT AT 2.4 ML, LR AT 150ML, ABX ALSO INFUSING. PT VS NOTED. PT REMAINS UNRESPONSIVE TO STIMULI AND IS ON NO SEDATION AT THIS TIME. MOTTLING REMAINS ON KNEES, AND FEET ARE CYANOTIC. VENT SETTINGS NOTED AND SATS WELL. ALL CRITICAL LAB NOTIFICATIONS WERE DISCUSSED WITH DR COREAS AND FIRST LACTIC ACID RESULT CALLED TO DR BELLE. I/O NOTED. OG CONT TO DRAIN BROWN RETURN ON LIS.
--- NOTE | 2019-01-05 21:08 | NUR ---
DR. COREAS NOTIFIED RE: PT'S CONTINUED HYPOTENSION AND RHYTHM CHANGE TO BRADYCARDIA HR 48-52. FAMILY CALLED TO BEDSIDE AND REMAIN IN ROOM. NEW ORDERS TO BEGIN ANTONIO-SYNEPHRINE GTT AND GIVE NOW DOSE OF SOLU-CORTEF. FAMILY UPDATED.
--- NOTE | 2019-01-05 21:10 | NUR ---
NEW ORDERS FROM DR. COREAS: NOW DOSE OF SOLU-CORTEF; BEGIN ANTONIO-SYNEPHRINE GTT; KEEP BLOOD LAB WORK ORDERED FOR am.
--- NOTE | 2019-01-05 23:33 | NUR ---
PT HR JUANITO TO THE 50'S AND 60'S. EKG BROUGHT TO BEDSIDE. EKG TABS PLACED PT RHYTHM ASYSTOLE. PT'S SISTER AT BEDSIDE. WHO CALLED OTHER FAMILY. HARDSCAPE FOREMAN RICK AND [employer] SUPERVISOR TO BEDSIDE. HARDSCAPE FOREMAN SPOKED WITH PT'S SISTER WHO STATED THAT SHE WANTED MEDICATION DRIPS STOPPED.
--- NOTE | 2019-01-05 23:52 | NUR ---
DR. COREAS NOTIFIED OF PT PASSING.
--- NOTE | 2019-01-06 01:05 | NUR ---
AT APPRX 2335 PT'S FAMILY CALLED RN TO BEDSIDE AND STATED THAT THEY WERE READY TO HAVE [facility] ( HOME) CALLED. PT'S DAUGHTER TOOK PT'S BELONGINGS. PT'S DAUGHTER WEN STATED EARLIER THAT PASTORAL CARE HAD SPOKEN TO THEM EARLIER TODAY AND DAUGHTER WEN DENIED SECOND VISIT. FAMILY GIVEN MORE TIME WITH PT. ONCE FAMILY LEFT THE ROOM PT ET TUBE REMOVED. ESCALANTE REMOVED AND PERIPHERAL IV'S REMOVED.
== END 2019-01-05 23:33 | DRG 871 ==
LOC: ER 12:20 → MEDS 14:52 → ERHOLD 14:52 → ICUW 14:52 → MEDS 18:30 → ICUW 18:48 → MEDS 01-05 04:05 → ICUW 01-05 10:38
PROVIDERS: Emergency Medicine; Internal Medicine; Internal Medicine Critical Care Medicine; Nurse Practitioner Acute Care; ADMIT Hospitalist
PROC: 5A09357 Assistance with Respiratory Ventilation, Less than 24 Consecutive Hours, Continuous Positive Airway Pressure (ICD-10-PCS; principal; 2019-01-05)
PROC: 3E033XZ Introduction of Vasopressor into Peripheral Vein, Percutaneous Approach (ICD-10-PCS; 2019-01-05)
PROC: 0BH18EZ Insertion of Endotracheal Airway into Trachea, Via Natural or Artificial Opening Endoscopic (ICD-10-PCS; 2019-01-05)
PROC: 5A1935Z Respiratory Ventilation, Less than 24 Consecutive Hours (ICD-10-PCS; 2019-01-05)
PROC: 02HV33Z Insertion of Infusion Device into Superior Vena Cava, Percutaneous Approach (ICD-10-PCS; 2019-01-05)
PROC: B548ZZA Ultrasonography of Superior Vena Cava, Guidance (ICD-10-PCS; 2019-01-05)
DX: A41.9 Sepsis, unspecified organism (principal); G93.41 Metabolic encephalopathy; J96.91 Respiratory failure, unspecified with hypoxia; N17.9 Acute kidney failure, unspecified; E87.2 Acidosis; C79.51 Secondary malignant neoplasm of bone; M48.50XA Collapsed vertebra, not elsewhere classified, site unspecified, initial encounter for fracture; Z68.41 Body mass index [BMI] 40.0-44.9, adult; Z95.1 Presence of aortocoronary bypass graft; Z90.79 Acquired absence of other genital organ(s); E11.51 Type 2 diabetes mellitus with diabetic peripheral angiopathy without gangrene; E03.9 Hypothyroidism, unspecified; N18.3 Chronic kidney disease, stage 3 (moderate); E78.5 Hyperlipidemia, unspecified; F32.9 Major depressive disorder, single episode, unspecified; G89.29 Other chronic pain; Z79.818 Long term (current) use of other agents affecting estrogen receptors and estrogen levels; E83.51 Hypocalcemia; C61 Malignant neoplasm of prostate; Z79.82 Long term (current) use of aspirin; T40.601A Poisoning by unspecified narcotics, accidental (unintentional), initial encounter; Y92.9 Unspecified place or not applicable; E66.01 Morbid (severe) obesity due to excess calories; I12.9 Hypertensive chronic kidney disease with stage 1 through stage 4 chronic kidney disease, or unspecified chronic kidney disease
CPT/HCPCS: 31500; 31720; 36415; 36569; 36600; 51702; 71045; 71250; 74176; 80048; 80053; 80069; 81001; 82330; 82550; 82553; 82803; 82947; 83605; 83690; 83735; 83880; 84100; 84443; 84484; 84550; 85025; 85610; 85730; 87040; 87086; 93005; 93010; 93308; 93321; 94002; 94660; 94762; 96360; 99285-25; C1751; J0610; J1720; J1815; J1956; J2060; J2185; J2310; J2370; J3370; J3480; J7040; J7050; J7060; J7070; J7120